=== PATIENT | female | born 1945 | race Caucasian/White ===

== ENCOUNTER 2022-10-26 09:15 | Day surgery (SDC) | payer MEDICARE ==
[2022-10-17 16:14] LABS: CLARITY,URINE CLEAR (Clear); COLOR,URINE YELLOW (Yellow); GLUCOSE, URINE NEGATIVE (Neg); KETONES,URINE NEGATIVE (Neg); LEUKOCYTE ESTERASE ,URINE NEGATIVE (Neg); NITRITES, URINE NEGATIVE (Neg); OCCULT BLOOD,URINE NEGATIVE (Neg); PH,URINE 6.5 (4.8-8.0); PROTEIN,URINE NEGATIVE (Neg); UROBILINOGEN,URINE 0.2 E.U/dL (0.2-1.0)
[2022-10-17 16:16] LABS: UA COLLECTION TYPE CLN CATCH MIDSTREAM
[2022-10-17 16:31] LABS: BASOPHILS % (AUTO) 0.6 % (0-1); EOSINOPHILS # (AUTO) 0.1 X10'3 (0-0.9); EOSINOPHILS % (AUTO) 2.4 % (0-6); LYMPHOCYTES # (AUTO) 1.6 X10'3 (1.1-4.8); LYMPHOCYTES % (AUTO) 27.1 % (21-51); MEAN CORPUSCULAR HEMOGLOBIN 31.4 PG (27.0-31.0); MEAN CORPUSCULAR VOLUME 95.3 FL (78-98); MEAN PLATELET VOLUME 7.7 FL (7.4-10.4); MONOCYTES # (AUTO) 0.5 X10'3 (0-0.9); MONOCYTES % (AUTO) 7.9 % (2-12); NEUTROPHILS # (AUTO) 3.6 X10'3 (1.8-7.7); PRE OP HEMOGLOBIN 14.5 g/dL (12.0-16.0); PRE OP PLATELET COUNT 446 X10'3 (140-440); RED BLOOD COUNT 4.62 X10'6 (4.20-5.60); RED CELL DISTRIBUTION WIDTH 13.6 % (11.5-14.5)
[2022-10-17 16:44] LABS: ALBUMIN 3.8 G/DL (3.4-5.0); ALKALINE PHOSPHATASE 83 IU/L (46-116); BLOOD UREA NITROGEN 8 MG/DL (7-18); BUN/CREATININE RATIO 11.3 (6.6-38.0); CALCIUM 9.1 MG/DL (8.5-10.1); CHLORIDE 102 MMOL/L (99-107); CREATININE 0.71 MG/DL (0.40-0.90); PRE OP ALT 23 U/L (30-65); PRE OP ANION GAP 7 (8-16); PRE OP AST 23 U/L (10-37); PRE OP BILIRUB, TOTAL 0.2 MG/DL (0.0-1.0); PRE OP GLUCOSE 86 MG/DL (70-104); PRE OP POTASSIUM 3.9 MMOL/L (3.4-5.1); PRE OP SODIUM 137 MMOL/L (135-145); TOTAL CARBON DIOXIDE 28.1 MMOL/L (24-32); TOTAL PROTEIN 7.5 G/DL (6.4-8.2); eGFR 80 ML/MIN
[2022-10-26] VITALS (10 sets, daily range): BP systolic 135–145; BP diastolic 69–86
[~2022-10-26] VITALS: Ht 160 cm; Wt 57.6 kg
[~2022-10-26 09:15] MED LIST: APIX2.5T PO; CYCL1DRO2 OP; DUTA0.5C40 PO; ESCI5TAB17 PO; FERR325T29 PO; LEVO50TA8 PO; LISI10TA27 PO; PANT40TA54 PO; PROG100C11 PO; [UNRECOGNIZED DRUG - OTHER] PO; ceFAZolin inj. 2,000 MG in dextrose 5%-water 100 ML IV ONE; famotidine 20mg tablet PO ONE; ringers solution, lacted 1,000 ML IV SCH
[2022-10-26] MEDS ORDERED: BUPIVAcaine 0.5% inj/PF 30 ML ONE (12:47)
[2022-10-26] MEDS ORDERED: bacitracin 15gm ointment TP ONE (12:47)
[2022-10-26] MEDS ORDERED: sevoflurane 250ml liquid IH ONE (13:04)
[2022-10-26] MEDS ORDERED: LIDOcaine 1% (10mg/ml)w/preservative inj. 20ml MDV ONE (13:04)
[2022-10-26] MEDS ORDERED: fentaNYL/PF 50MCG/1 ML 2ML syringe ONE (13:06)
[2022-10-26] MEDS ORDERED: midazolam 1 mg/ML 2ml injection ONE (13:06)
[2022-10-26] MEDS ORDERED: propofol inj 20 ML IV ONE (13:06)
[2022-10-26] MEDS ORDERED: ondansetron/PF 4mg/2ml inj IV PRN (13:10)
[2022-10-26] MEDS ORDERED: morphine 2 MG/ML inj. syringe IV PRN (13:10)
[2022-10-26] MEDS ORDERED: ringers solution, lacted 1,000 ML IV SCH (13:10)
[2022-10-26] MEDS ORDERED: morphine 4 MG/ML inj SYRINge IV PRN (13:10)
[2022-10-26] MEDS ORDERED: proCHLORperazine 10 MG/2 ml inj IV PRN (13:10)
[2022-10-26] MEDS ORDERED: meperidine/PF 25mg/ml syringe IV PRN ×3 (13:10)
[2022-10-26] MEDS ORDERED: BUPIVAcaine 0.5% inj/PF 30 ml vial IJ ONE (13:39)
[2022-10-26] MEDS ORDERED: dexamethasone sod phosphate 4mg/ml inj. ONE (13:54)
[2022-10-26] MEDS ORDERED: ondansetron/PF 4mg/2ml inj ONE (13:55)
--- NOTE | 2022-10-26 14:06 | NUR ---
Received from OR via , accompanied by Anesthesiologist ROSALVA AND OR NURSE and report given by Anesthesiolgist. PT IS DROWSY YET RESPONDS TO VERBAL STIMULI. GAUZE WRAPPED TO AFFECTED FOOT AND WRAPPED IN DOM WRAP; BLOODY DRAINAGE TO GAUZE AT TOP OF FOOT. VSS Addendum: 10/26/22 at 1451 by Eunice Head RN Amended: Links added.
--- NOTE | 2022-10-26 15:46 | NUR ---
ALL DISCHARGE CRITERIA HAS BEEN MET. VSS, PAIN AT A TOLERABLE LEVEL, VOIDING AND ABLE TO SAFELY AMBULATE AND TRANSFER SELF. IV TAKEN OUT WITHOUT ANY COMPLICATIONS. ALL DISCHARGE INSTRUCTIONS COVERED WITH PATIENT AND ALL QUESTIONS ANSWERED. PATIENT TAKEN OUT VIA WHEELCHAIR TO PERSONAL VEHICLE WHERE FAMILY/FRIEND DROVE PATIENT HOME. PT HAD INCREASED DRAINAGE WITH BLOOD DROPS ON FLOOR WHEN STANDING TO PUT CLOTHING ON. STAFF REINFORCED DRESSING WITH 4X4 GAUZE AROUND TOES UNDER DOM WRAP. PT IS EDUCATED ON THE IMPORTANCE OF ELEVATING THE FOOT AND NONWEIGHT BEARING. Addendum: 10/26/22 at 1559 by Eunice Head RN Amended: Links added.
== END 2022-10-26 15:46 | disposition home or self-care (01) ==
LOC: PAS 09:15
PROVIDERS: ATTEND Podiatrist Foot & Ankle Surgery
DX: M20.42 Other hammer toe(s) (acquired), left foot (principal); M77.42 Metatarsalgia, left foot; M19.072 Primary osteoarthritis, left ankle and foot; I10 Essential (primary) hypertension; K21.9 Gastro-esophageal reflux disease without esophagitis; F32.9 Major depressive disorder, single episode, unspecified; M19.90 Unspecified osteoarthritis, unspecified site; Z79.899 Other long term (current) drug therapy; Z98.890 Other specified postprocedural states; Z86.73 Personal history of transient ischemic attack (TIA), and cerebral infarction without residual deficits; Z88.6 Allergy status to analgesic agent; Z88.8 Allergy status to other drugs, medicaments and biological substances; Z91.041 Radiographic dye allergy status; Z90.710 Acquired absence of both cervix and uterus
CPT/HCPCS: 28112; 28285; 36415; 73620; 80053; 81003; 82948; 85025; A6222; C1713; J0690; J1100; J2250; J2405; J2704; J3010; J3490; J7030; J7060; J7120; S0020; Z7506; Z7508; Z7512; 76000; A4618; A6253; A6446; A6449; A7000